=== PATIENT | male | born 1980 | race Two or more races ===

== ENCOUNTER 2018-09-24 15:50 | Emergency (ER) | payer MEDICAID ==
[2018-09-24 16:27] VITALS: BP 120/84
== END 2018-09-24 17:19 | disposition home or self-care (01) ==
LOC: ER 15:59
DX: S93.401A Sprain of unspecified ligament of right ankle, initial encounter (principal); W01.0XXA Fall on same level from slipping, tripping and stumbling without subsequent striking against object, initial encounter; Y93.89 Activity, other specified; Y99.8 Other external cause status; Y92.89 Other specified places as the place of occurrence of the external cause
CPT/HCPCS: 73610